=== PATIENT | female | born 1935 | race Two or more races ===

== ENCOUNTER → 2023-02-16 | Emergency (ER) | payer OTHER ==
[~2023-02-16] VITALS: Ht 149.9 cm; Wt 95.3 kg
[~2023-02-16] MED LIST: COZAAR25 MG PO; ELIQUIS2.5 MG PO; HORIZANT300 MG; LASIX20 MG; LIPITOR20 MG PO; SYNTHROID75 MCG PO
== END | disposition home or self-care (01) ==
LOC: ER 08:08
DX: M54.50 Low back pain, unspecified (principal); M25.551 Pain in right hip; M25.552 Pain in left hip; M25.562 Pain in left knee